=== PATIENT | male | born 1980 | race Caucasian/White ===

== ENCOUNTER → 2025-01-24 09:31 | Outpatient (BNVA) | payer OTHER, SELFPAY | PROVIDERS: PCP Clinical Nurse Specialist Adult Health; Visit Provider Clinical Nurse Specialist Adult Health | DX: M19.011 Primary osteoarthritis, right shoulder (principal); F32.1 Major depressive disorder, single episode, moderate | CPT/HCPCS: 80053; 80061; 82306; 82607; 84443; 85025 ==